=== PATIENT | female | born 1975 | race Caucasian/White ===

== ENCOUNTER 2017-09-04 15:02 | Emergency (ER) | payer MEDICAID ==
[2017-09-04 15:20] VITALS: BP 135/102
[2017-09-04] MEDS ORDERED: oxyCOD/ACETAMIN 5 MG/325 MG TABLET PO STA (15:36)
[2017-09-04] MEDS ORDERED: CLINDAMYCIN 150 MG CAPSULE PO STA (15:36)
--- NOTE | 2017-09-04 15:41 | ED Physician Documentation ---
PD HPI SKIN - Stated complaint Stated Complaint: BILAT UNDER ARM PX - Chief complaint Chief Complaint: Wound - History obtained from History obtained from: Patient - History of Present Illness Timing - onset: Other (She had a cyst in the right axilla about a month ago that went away on its own. Now has one for the last few days and actually multiple on either side without fevers.) Review of Systems Constitutional: denies: Fever, Chills Cardiac: reports: Reviewed and negative Respiratory: reports: Reviewed and negative PD PAST MEDICAL HISTORY - Past Medical History Past Medical History: No - Past Surgical History Past Surgical History: No - Present Medications Home Medications: Ambulatory Orders Medication Instructions Recorded Confirmed Clindamycin [Cleocin] 300 mg PO Q6H 10 Days capsule 09/04/17 Oxycodone HCl/Acetaminophen 1 - 2 tab PO Q4H PRN #10 tablet 09/04/17 [Percocet 5-325 mg Tablet] - Allergies Allergies/Adverse Reactions: Allergies Allergy/AdvReac Type Severity Reaction Status Date / Time No Known Drug Allergies Allergy Verified 09/04/17 15:20 - Social History Does the pt smoke?: Yes Smoking Status: Current every day smoker Does the pt drink ETOH?: No Does the pt have substance abuse?: No - Immunizations Immunizations are current?: Yes PD ED PE NORMAL - Vitals Vital signs reviewed: Yes - General General: Alert and oriented X 3, No acute distress - Derm Derm: Other (Multiple small tender cysts in both axilla without cellulitis. Good ROM.) - Neuro Neuro: Alert and oriented X 3, Normal speech Results - Vitals Vitals: Vital Signs - 24 hr 09/04/17 15:18 Temperature 36.4 C L Heart Rate 102 H Respiratory 18 Rate Blood Pressure 135/102 H O2 Saturation 98 Oxygen O2 Source Room air Departure - Departure Disposition: Home, Self Care Clinical Impression: Hidradenitis suppurativa Condition: Good Record reviewed to determine appropriate education?: Yes Instructions: ED Stap Infec Abx Tx Only Follow-Up: [facility] [Provider Group] Prescriptions: Clindamycin [Cleocin] 300 mg PO Q6H 10 Days capsule Oxycodone HCl/Acetaminophen [Percocet 5-325 mg Tablet] 1 - 2 tab PO Q4H PRN #10 tablet PRN Reason: Pain Comments: Call your doctor to arrange a follow-up appointment, make the next available appointment. In the interim, return anytime if worse or if new symptoms develop.
== END 2017-09-04 15:56 | disposition home or self-care (01) ==
LOC: ED 15:02
DX: L73.2 Hidradenitis suppurativa (principal); F17.200 Nicotine dependence, unspecified, uncomplicated
CPT/HCPCS: 99283; A9270

== ENCOUNTER 2017-12-03 09:30 | Emergency (ER) | payer MEDICAID ==
[2017-12-03 09:39] VITALS: BP 138/83
--- NOTE | 2017-12-03 10:46 | XRAY Report ---
Reason: left ankle injury Procedure Date: 12/03/2017 Accession Number: [id number] / [id number] Procedure: XR - Ankle 3 View LT CPT Code: FULL RESULT: EXAM: LEFT ANKLE RADIOGRAPHY EXAM DATE: 12/03/2017 09:54 AM. CLINICAL HISTORY: Pain and swelling to the left ankle following inversion injury. COMPARISON: None. TECHNIQUE: 3 views. FINDINGS: Bones: Normal. No fractures or bone lesions. Joints: Normal. No effusion. No subluxations. The ankle mortise is normally aligned. Soft Tissues: Mildly increased soft tissue swelling predominantly at the lateral ankle. IMPRESSION: Soft tissue swelling without fracture or dislocation. RADIA
== END 2017-12-03 10:23 | disposition left against medical advice (07) ==
LOC: ED 09:30
DX: Z53.21 Procedure and treatment not carried out due to patient leaving prior to being seen by health care provider (principal)

== ENCOUNTER 2022-03-13 21:01 | Emergency (ER) | payer MEDICAID ==
--- NOTE | 2022-03-13 21:30 | ED Physician Documentation ---
History of Present Illness - Stated complaint Stated Complaint: SOA,HIGH BP,VISION BLURRED - Chief complaint Chief Complaint: General - History obtained from History obtained from: Patient - Additonal information Additional information: The patient comes to the emergency department chief complaint of blurry vision for the last couple of months, bloody noses, high blood pressure, and just feeling generally weak. The patient does not currently see a primary care physician. She has no formal diagnosis of hypertension and has never been diagnosed with diabetes. She does not normally need any corrective lenses. The patient denies any bleeding disorders. She has had some vaginal bleeding, but states its been mostly normal. The patient states that she has noticed some intermittent swelling in her lower extremities, but it is better right now. No fevers or chills. No cough. No nausea or vomiting. No other complaints at this time. Review of Systems Ten Systems: 10 systems reviewed and negative Constitutional: reports: Fatigue Eyes: reports: Reviewed and negative Ears: reports: Reviewed and negative Nose: reports: Reviewed and negative Throat: reports: Reviewed and negative Cardiac: reports: Reviewed and negative Respiratory: reports: Reviewed and negative GI: reports: Reviewed and negative : reports: Reviewed and negative Skin: reports: Reviewed and negative Musculoskeletal: reports: Reviewed and negative Neurologic: reports: Reviewed and negative Psychiatric: reports: Reviewed and negative Endocrine: reports: Reviewed and negative Immunocompromised: reports: Reviewed and negative PD PAST MEDICAL HISTORY - Past Medical History Past Medical History: Yes Cardiovascular: Hypertension Respiratory: None Neuro: None Endocrine/Autoimmune: None GI: None 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 : None HEENT: None Psych: None Musculoskeletal: None Derm: None - Past Surgical History Past Surgical History: No - Present Medications Home Medications: Ambulatory Orders Medication Instructions Recorded Confirmed Ferrous Sulfate [Feosol] 325 mg PO DAILY #90 tablet 03/13/22 - Allergies Allergies/Adverse Reactions: Allergies Allergy/AdvReac Type Severity Reaction Status Date / Time No Known Drug Allergies Allergy Verified 03/13/22 21:16 - Social History Does the pt smoke?: Yes Smoking Status: Current every day smoker Does the pt drink ETOH?: No Does the pt have substance abuse?: No - Immunizations Immunizations are current?: Yes - POLST Patient has POLST: No PD ED PE NORMAL - Vitals Vital signs reviewed: Yes - General General: Alert and oriented X 3, No acute distress, Well developed/nourished, Other (Somewhat disheveled) - HEENT HEENT: Atraumatic, PERRL, EOMI, Moist mucous membranes - Neck Neck: Supple, no meningeal sign - Cardiac Cardiac: RRR, No murmur - Respiratory Respiratory: No respiratory distress, Clear bilaterally - Abdomen Abdomen: Soft, Non tender, Non distended - Derm Derm: Warm and dry, Other (Moderate pallor) - Extremities Extremities: No deformity, No edema - Neuro Neuro: Alert and oriented X 3, master esthetician 2-12 intact, Normal speech, Other (Grossly intact) - Psych Psych: Normal mood, Normal affect Results - Vitals Vitals: Oxygen O2 Source Room air - Labs Labs: Laboratory Tests 03/13/22 03/13/22 03/13/22 21:38 21:38 21:38 WBC 6.9 RBC 3.49 L Hgb 6.9 L* Hct 25.7 L MCV 73.6 L MCH 19.8 L MCHC 26.8 L RDW 22.3 H Plt Count 342 MPV 10.2 Neut # (Auto) 4.1 Lymph # (Auto) 1.8 [place] # (Auto) 0.6 Eos # (Auto) 0.3 Baso # (Auto) 0.1 Absolute Nucleated RBC 0.00 Nucleated RBC % 0.0 PT INR Sodium 136 Potassium 3.8 Chloride 99 L Carbon Dioxide 26 Anion Gap 11.0 BUN 15 Creatinine 1.5 H Estimated GFR (MDRD) 37 L Glucose 87 Calcium 8.5 Total Bilirubin 0.6 AST 152 H ALT 102 H Alkaline Phosphatase 115 Total Protein 9.1 H Albumin 3.7 Globulin 5.4 H Albumin/Globulin Ratio 0.7 L Lipase 40 Blood Type Blood Type Recheck A POSITIVE Antibody Screen Crossmatch IS Only 03/13/22 03/13/22 21:55 21:55 WBC RBC Hgb Hct MCV MCH MCHC RDW Plt Count MPV Neut # (Auto) Lymph # (Auto) [place] # (Auto) Eos # (Auto) Baso # (Auto) Absolute Nucleated RBC Nucleated RBC % PT 11.7 INR 1.0 Sodium Potassium Chloride Carbon Dioxide Anion Gap BUN Creatinine Estimated GFR (MDRD) Glucose Calcium Total Bilirubin AST ALT Alkaline Phosphatase Total Protein Albumin Globulin Albumin/Globulin Ratio Lipase Blood Type A POSITIVE Blood Type Recheck Antibody Screen NEGATIVE Crossmatch IS Only See Detail PD MEDICAL DECISION MAKING - ED course Complexity details: reviewed results, re-evaluated patient, considered differential, d/w patient ED course: The patient was worked up with laboratory studies, which did show a hemoglobin of 6.9. I discussed this with the patient, and informed her that she is low enough to be within transfusion range and that I would recommend this, given that she has had fatigue recently. The patient states that she does not want to receive the transfusion unless her is here. The patient requested that we contact the for her and then wait 20 minutes to see if he shows up. I told her that we need to move forward with treatment if she is going to have it and that she is welcome to call her herself. The patient did call apparently this person and the number that she dialed was disconnected. I reviewed her records and the patient is not listed as having any spouse and her demographics. The patient stated that she would prefer to just go instead of getting the transfusion. I have prepared AMA paperwork for her, as I do feel that it would be in her best interest to get the transfusion and then started on iron pill. I have advised her to follow-up with soon as possible with her primary doctor and gynecology. We have discussed that she can come back anytime, should she change her mind about the transfusion. I have prescribed iron sulfate for her. Departure - Departure Disposition: 07 Against Medical Advice Clinical Impression: Anemia Qualifiers: Anemia type: iron deficiency Iron deficiency anemia type: chronic blood loss Qualified Code(s): D50.0 - Iron deficiency anemia secondary to blood loss (chronic) Condition: Stable Instructions: ED Anemia Iron Deficiency Follow-Up: Bakari Villa MD [Provider Admit Priv/Credential] - Alvina Tinsley PA-C [Provider Admit Priv/Credential] - Prescriptions: Ferrous Sulfate [Feosol] 325 mg PO DAILY #90 tablet Comments: You have been evaluated in the emergency department for feeling tired and sometimes short of breath, and had been found to have a red blood cell level that is very low. You are just barely in transfusion range, and we have offered you this today. However, you have declined unless your significant other is here, but have been unable to reach him. As such, since you have declined to have a transfusion under any other circumstances, you are choosing to leave AGAINST MEDICAL ADVICE. At this point in time, the only other thing we can do for you is to place you on iron tablets. It is very important that you follow- up both in primary care and women's health if you are having ongoing vaginal bleeding. It is possible that you need hormone therapy or a hysterectomy. Please call to make the next possible appointment. Discharge Date/Time: 03/13/22 23:35
[2022-03-13 21:42] LABS: BASOPHILS # (AUTO) 0.1 10^3/uL (0.0-0.1); EOSINOPHILS # (AUTO) 0.3 10^3/uL (0.0-0.7); EOSINOPHILS % (AUTO) 4.5 %; HCT - HEMATOCRIT 25.7 % (37.0-47.0); LYMPHOCYTES # (AUTO) 1.8 10^3/uL (1.5-3.5); LYMPHOCYTES % (AUTO) 25.8 %; MEAN CORPUSCULAR HEMOGLOBIN 19.8 pg (27.0-31.0); MEAN CORPUSCULAR HGB CONC 26.8 g/dL (32.0-36.0); MEAN CORPUSCULAR VOLUME 73.6 fL (81.0-99.0); MEAN PLATELET VOLUME 10.2 fL (7.9-10.8); MONOCYTES # (AUTO) 0.6 10^3/uL (0.0-1.0); MONOCYTES % (AUTO) 8.7 %; NEUTROPHILS # (AUTO) 4.1 10^3/uL (1.5-6.6); NEUTROPHILS % (AUTO) 59.7 %; PLT - PLATELET COUNT 342 10^3/uL (130-450); RED BLOOD COUNT 3.49 10^6/uL (4.20-5.40); RED CELL DISTRIBUTION WIDTH 22.3 % (12.0-15.0); WHITE BLOOD COUNT 6.9 x10^3/uL (4.8-10.8)
[2022-03-13 21:46] LABS: HGB - HEMOGLOBIN 6.9 g/dL (12.0-16.0)
[2022-03-13] MEDS ORDERED: SODIUM CHLORIDE 0.9% 1,000 ML IV STA (21:50)
[2022-03-13 21:56] LABS: ALBUMIN 3.7 g/dL (3.2-5.5); ALBUMIN/GLOBULIN RATIO 0.7 (1.0-2.2); BILIRUBIN,TOTAL 0.6 mg/dL (0.2-1.0); CALCIUM 8.5 mg/dL (8.5-10.3); CREATININE 1.5 mg/dL (0.4-1.0); POTASSIUM 3.8 mmol/L (3.5-5.0); TOTAL PROTEIN 9.1 g/dL (6.7-8.2)
[2022-03-13 22:08] LABS: PT - PROTHROMBIN TIME 11.7 secs (9.9-12.6)
[2022-03-13 23:24] VITALS: BP 150/91
== END 2022-03-13 23:35 | disposition left against medical advice (07) ==
LOC: ED 21:01
DX: D50.0 Iron deficiency anemia secondary to blood loss (chronic) (principal); F17.200 Nicotine dependence, unspecified, uncomplicated; Z53.29 Procedure and treatment not carried out because of patient's decision for other reasons
CPT/HCPCS: 36415; 80053; 83690; 85025; 85610; 86850; 86900; 86901; 86920; 99283; 99284

== ENCOUNTER 2022-09-28 17:16 | Emergency (ER) | payer OTHER, MEDICAID ==
[2022-09-28 17:27] VITALS: BP 118/70
--- NOTE | 2022-09-28 17:35 | ED Physician Documentation ---
History of Present Illness - Stated complaint Stated Complaint: FIT - Chief complaint Chief Complaint: Ext Problem - Additonal information Additional information: 46-year-old female was brought to the emergency department by [facility] eriff officers requesting evaluation for fit for confinement. Patient had complained to the [employer] officers that she needed a blood transfusion. The patient is homeless and was arrested today and warrants. She is pending incarceration for the next several weeks. Patient states she is chronically fatigued. Denies alcohol use but is a tobacco user. States she has a history of hypertension but is unmedicated at this time. No recent syncope. She denies melena but states that she does have prolonged menstrual cycles when they occur. 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 : None HEENT: None Psych: None Musculoskeletal: None Derm: None - Past Surgical History Past Surgical History: No - Present Medications Home Medications: Ambulatory Orders Medication Instructions Recorded Confirmed Ferrous Sulfate [Feosol] 325 mg PO DAILY #90 tablet 03/13/22 - Allergies Allergies/Adverse Reactions: Allergies Allergy/AdvReac Type Severity Reaction Status Date / Time No Known Drug Allergies Allergy Verified 09/28/22 17:19 - Social History Does the pt smoke?: Yes Smoking Status: Current every day smoker Does the pt drink ETOH?: No Does the pt have substance abuse?: No - Immunizations Immunizations are current?: Yes - POLST Patient has POLST: No PD ED PE NORMAL - General General: Alert and oriented X 3, No acute distress. No: Well developed/nourished (Grossly disheveled with poor hygiene and bad smell) - Cardiac Cardiac: RRR, No murmur. No: Strong equal pulses (1+ pedal pulses bilaterally. Brisk cap refill. Evidence of peripheral vascular disease bilateral lower extremities) - Respiratory Respiratory: No respiratory distress, Clear bilaterally - Abdomen Abdomen: Normal bowel sounds, Soft, Non tender, Non distended - Neuro Neuro: Alert and oriented X 3, power distributor 2-12 intact Eye Opening: Spontaneous Motor: Obeys Commands Verbal: Oriented GCS Score: 15 Results - Vitals Vitals: Vital Signs - 24 hr 09/28/22 17:19 Temperature 36.5 C Heart Rate 74 Respiratory 18 Rate Blood Pressure 118/70 O2 Saturation 93 Oxygen O2 Source Room air - Labs Labs: Laboratory Tests 09/28/22 09/28/22 17:35 17:35 WBC 5.2 RBC 4.78 Hgb 11.3 L Hct 38.0 MCV 79.5 L MCH 23.6 L MCHC 29.7 L RDW 24.5 H Plt Count 356 MPV 10.7 Neut # (Auto) 3.0 Lymph # (Auto) 1.7 [place] # (Auto) 0.3 Eos # (Auto) 0.2 Baso # (Auto) 0.1 Absolute Nucleated RBC 0.00 Nucleated RBC % 0.0 Platelet Estimate NORMAL (130-450,000) Platelet Morphology NORMAL APPEARANCE RBC Morph Micro Appear 3+ ANISOCYTOSIS Sodium 133 L Potassium 3.6 Chloride 99 L Carbon Dioxide 27 Anion Gap 7.0 BUN 18 Creatinine 1.6 H Estimated GFR (MDRD) 34 L Glucose 121 H Calcium 8.9 Total Bilirubin 0.7 AST 113 H ALT 62 H Alkaline Phosphatase 101 Total Protein 9.7 H Albumin 3.8 Globulin 5.9 H Albumin/Globulin Ratio 0.6 L Lipase 42 PD Medical Decision Making - ED course Complexity details: reviewed results, re-evaluated patient, considered differential, d/w patient ED course: 38-year-old female who is homeless was brought to the emergency department by [facility] officers requesting evaluation for fit for confinement. The patient had reportedly told the officers she was fatigued and needed a blood transfusion. She was seen in this emergency department March 2022 for fatigue and found to have a hemoglobin of 6.9. However she ultimately left AGAINST MEDICAL ADVICE not receiving the blood transfusion. She reports heavy menstrual cycles. No melena. Presentation to the emergency department she appears quite disheveled and with poor hygiene and odor. Her vital signs are however normal without hypotension or tachycardia. I did obtain CBC and electrolytes. Per my interpretation no anemia was noted. Her hemoglobin was 11.3. She did have some mild electrolyte derangements that are essentially unchanged from previous. I do note a creatinine of 1.6, slightly up from her previous of 1.3. She also has some LFT abnormalities essentially unchanged from previous. Patient takes no medications. At this time patient is clinically stable and is discharged back to to the custody of [facility]. She is fit for confinement. She is advised to follow closely with a primary doctor when released from confinement. Departure - Departure Disposition: 01 Home, Self Care Clinical Impression: Encounter for medical assessment, Abnormal LFTs Chronic kidney disease Qualifiers: Chronic kidney disease stage: unspecified stage Qualified Code(s): N18.9 - Chronic kidney disease, unspecified Comments: You are medically cleared for incarceration. Your labs today show a normal hemoglobin. You do not need a blood transfusion. Your electrolytes do show a chronic and essentially unchanged kidney disease. You also have abnormal liver function tests. I encourage you to follow these labs up with a primary doctor when you are released from incarceration. You do not need any medications while incarcerated.
[2022-09-28 17:43] LABS: BASOPHILS # (AUTO) 0.1 10^3/uL (0.0-0.1); BASOPHILS % (AUTO) 1.7 %; EOSINOPHILS # (AUTO) 0.2 10^3/uL (0.0-0.7); EOSINOPHILS % (AUTO) 3.1 %; HGB - HEMOGLOBIN 11.3 g/dL (12.0-16.0); LYMPHOCYTES # (AUTO) 1.7 10^3/uL (1.5-3.5); LYMPHOCYTES % (AUTO) 32.1 %; MEAN CORPUSCULAR HEMOGLOBIN 23.6 pg (27.0-31.0); MEAN CORPUSCULAR HGB CONC 29.7 g/dL (32.0-36.0); MEAN CORPUSCULAR VOLUME 79.5 fL (81.0-99.0); MEAN PLATELET VOLUME 10.7 fL (7.9-10.8); MONOCYTES # (AUTO) 0.3 10^3/uL (0.0-1.0); MONOCYTES % (AUTO) 5.5 %; NEUTROPHILS % (AUTO) 57.6 %; PLT - PLATELET COUNT 356 10^3/uL (130-450); RED BLOOD COUNT 4.78 10^6/uL (4.20-5.40); RED CELL DISTRIBUTION WIDTH 24.5 % (12.0-15.0); WHITE BLOOD COUNT 5.2 x10^3/uL (4.8-10.8)
[2022-09-28 17:56] LABS: ALBUMIN 3.8 g/dL (3.2-5.5); ALBUMIN/GLOBULIN RATIO 0.6 (1.0-2.2); BILIRUBIN,TOTAL 0.7 mg/dL (0.2-1.0); CALCIUM 8.9 mg/dL (8.5-10.3); CREATININE 1.6 mg/dL (0.4-1.0); POTASSIUM 3.6 mmol/L (3.5-5.0); TOTAL PROTEIN 9.7 g/dL (6.7-8.2)
[2022-09-28 17:59] LABS: PLATELET ESTIMATE, MANUAL NORMAL (130-450,000) (NORMAL); PLATELET MORPHOLOGY NORMAL APPEARANCE (NORMAL); RBC MORPHOLOGY (MULTIPLE) 3+ ANISOCYTOSIS (NORMAL)
== END 2022-09-28 18:12 | disposition home or self-care (01) ==
LOC: ED 17:16
DX: Z02.89 Encounter for other administrative examinations (principal); R74.01 Elevation of levels of liver transaminase levels; N18.9 Chronic kidney disease, unspecified; F17.200 Nicotine dependence, unspecified, uncomplicated; Z59.00 Homelessness unspecified
CPT/HCPCS: 36415; 80053; 83690; 85025; 86850; 86900; 86901; 99283

== ENCOUNTER 2023-08-18 06:25 | Emergency (ER) | payer MEDICAID, OTHER ==
[2023-08-18 06:45] VITALS: BP 180/109; O2SAT 94
--- NOTE | 2023-08-18 06:53 | ED Physician Documentation ---
PD HPI OPHTHO - Stated complaint Stated Complaint: FIT - Chief complaint Chief Complaint: Heent - History obtained from History obtained from: Patient, Police - Additional information Additional information: 47yF p/w BL eye discharge X 1 week with itchiness and purulence. denies fever, uri symptoms. denies contact lens use. 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 : None HEENT: None Psych: None Musculoskeletal: None Derm: None - Past Surgical History Past Surgical History: No - Present Medications Home Medications: Ambulatory Orders Medication Instructions Recorded Confirmed Ferrous Sulfate [Feosol] 325 mg PO DAILY #90 tablet 03/13/22 08/18/23 - Allergies Allergies/Adverse Reactions: Allergies Allergy/AdvReac Type Severity Reaction Status Date / Time No Known Drug Allergies Allergy Verified 08/18/23 06:36 - Social History Does the pt smoke?: Yes Smoking Status: Current every day smoker Does the pt drink ETOH?: No Does the pt have substance abuse?: No - Immunizations Immunizations are current?: Yes - POLST Patient has POLST: No PD ED PE NORMAL - Vitals Vital signs reviewed: Yes - General General: Alert and oriented X 3, No acute distress, Well developed/nourished - HEENT HEENT: Atraumatic, PERRL, EOMI, Other (BL sukumar purulent discharge from both eyes. erythema to BL conjunctivae) Results - Vitals Vitals: Vital Signs - 24 hr 08/18/23 06:33 Temperature 36 C L Heart Rate 82 Respiratory 18 Rate Blood Pressure 180/109 H O2 Saturation 94 Oxygen O2 Source Room air PD Medical Decision Making - ED course ED course: 47yF p/w BL conjunctivitis. Eye drops provided and plan to f/u outpatient walk in clinic or optometry for recheck in 3-4 days. return precautions given. Departure - Departure Disposition: 01 Home, Self Care Clinical Impression: Conjunctivitis Condition: Stable Instructions: Red Eye Tx Comments: You were seen in the emergency department for conjunctivitis (pink eye). This is HIGHLY CONTAGIOUS. Wash hands with hot soapy water and avoid touching the face. Use the antibiotic eye drops (1-2 drops in each eye) every 4 hours until the bottle is empty. Please follow-up with outpatient walk in clinic or optometry for recheck in 3-4 days and return to the emergency department if you have any new or worsening symptoms or other concerns.
[2023-08-18] MEDS: OFLOXACIN 0.3% OPHTH DROPS EACHEYE SCH (06:56)
== END 2023-08-18 07:09 | disposition home or self-care (01) ==
LOC: ED 06:25
DX: Z02.89 Encounter for other administrative examinations (principal); H10.9 Unspecified conjunctivitis; F17.200 Nicotine dependence, unspecified, uncomplicated
CPT/HCPCS: 99283; A9270

== ENCOUNTER 2023-09-02 19:32 | Outpatient (CLI) | payer MEDICAID | END 2023-09-02 19:33 | disposition critical access hospital (66) | LOC: EMS 19:32 | DX: R41.82 Altered mental status, unspecified (principal); R46.4 Slowness and poor responsiveness; R46.89 Other symptoms and signs involving appearance and behavior; R46.0 Very low level of personal hygiene; T68.XXXA Hypothermia, initial encounter; X31.XXXA Exposure to excessive natural cold, initial encounter; Z59.00 Homelessness unspecified | CPT/HCPCS: A0425; A0427; A0999 ==

== ENCOUNTER 2023-09-02 19:44 | Emergency (ER) | payer MEDICAID, OTHER ==
[2023-09-02] MEDS ORDERED: ATROPINE ABBOJECT 1 MG/10 ML SYRINGE IVP ONE (19:45)
[2023-09-02] MEDS ORDERED: EPINEPHrine ABBOJECT 1 MG/10 ML SYRINGE IVP ONE (19:45)
[2023-09-02] MEDS ORDERED: iohexoL-300 100 ML VIAL ONE (20:07)
[2023-09-02] MEDS ORDERED: NOREPINEPHRINE/0.9 % NS 8 MG/250 ML BAG IV ONE (20:22)
[2023-09-02] MEDS: SODIUM CHLORIDE 0.9% 1,000 ML IV STA ×2 (20:25→21:10)
[2023-09-02] MEDS: PROPOFOL 1000 MG/100 ML 1,000 MG/100 ML BOTTLE IV STA (20:28)
[2023-09-02 20:31] LABS: BASOPHILS % (AUTO) 0.4 %; EOSINOPHILS % (AUTO) 0.4 %; HCT - HEMATOCRIT 30.5 % (37.0-47.0); HGB - HEMOGLOBIN 9.5 g/dL (12.0-16.0); LYMPHOCYTES # (AUTO) 0.3 10^3/uL (1.5-3.5); LYMPHOCYTES % (AUTO) 13.8 %; MEAN CORPUSCULAR HEMOGLOBIN 29.7 pg (27.0-31.0); MEAN CORPUSCULAR HGB CONC 31.1 g/dL (32.0-36.0); MEAN CORPUSCULAR VOLUME 95.3 fL (81.0-99.0); MEAN PLATELET VOLUME 11.9 fL (7.9-10.8); MONOCYTES # (AUTO) 0.1 10^3/uL (0.0-1.0); NRBC ABSOLUTE COUNT (AUTO) 0.05 x10^3/uL; PLT - PLATELET COUNT 65 10^3/uL (130-450); RED CELL DISTRIBUTION WIDTH 21.1 % (12.0-15.0); WHITE BLOOD COUNT 2.5 x10^3/uL (4.8-10.8)
[2023-09-02] MEDS: KETAMINE 500 MG/10 ML VIAL IVP STA (20:31)
[2023-09-02] MEDS: NOREPINEPHRINE/0.9 % NS 8 MG/250 ML BAG IV SCH (20:31)
[2023-09-02 20:32] LABS: VBG BASE EXCESS -3.1 mmol/L (-2 - +2); VBG HCO3 23.1 mmol/L (23-28); VBG OXYGEN SATURATION 92.5 % (60-80); VBG PCO2 46.6 mmHg (41-51); VBG PH 7.313 (7.31-7.41); VBG TOTAL CO2 24.5 mmol/L (24-29)
[2023-09-02] MEDS: EPINEPHrine 1 MG/ML AMP IVP STA (20:32)
[2023-09-02] MEDS: ROCURONIUM 50 MG/5 ML VIAL IVP STA (20:32)
[2023-09-02 20:33] LABS: SLIDE REVIEW? Indicated
[2023-09-02] MEDS: SODIUM CHLORIDE 0.9% 2,730 ML IV STA (20:38)
[2023-09-02] MEDS: EPINEPHrine 4 MG in DEXTROSE 5% 246 ML IV STA (20:40)
[2023-09-02] MEDS: metroNIDAZOLE 500 MG/100 ML 500 MG/100 ML BAG IV ONE (20:41)
[2023-09-02] MEDS: CEFEPIME 2 GM in SODIUM CHLORIDE 0.9% MINIBAG 100 ML IV STA (20:41)
[2023-09-02 20:48] LABS: ACETAMINOPHEN 0.3 ug/mL; ALBUMIN 3.2 g/dL (3.2-5.5); ALBUMIN/GLOBULIN RATIO 0.8 (1.0-2.2); ALKALINE PHOSPHATASE 122 IU/L (42-121); ALT ALANINE AMINOTRANSFERASE 104 IU/L (10-60); AST ASPARTATE AMINOTRANSFERASE 225 IU/L (10-42); BILIRUBIN,TOTAL 0.5 mg/dL (0.2-1.0); BUN - BLOOD UREA NITROGEN 26 mg/dL (6-20); CALCIUM 8.8 mg/dL (8.5-10.3); CARBON DIOXIDE - CO2 25 mmol/L (21-32); CHLORIDE 104 mmol/L (101-111); CREATININE 1.2 mg/dL (0.6-1.3); ETOH - ETHANOL < 10.0 mg/dL; GFR - MDRD 48 (>89); GLUCOSE 144 mg/dL (74-104); MAGNESIUM 2.1 mg/dL (1.7-2.3); PHOSPHORUS 3.9 mg/dL (2.5-5.0); POTASSIUM 3.1 mmol/L (3.5-4.5); SODIUM 138 mmol/L (135-145); TOTAL PROTEIN 7.4 g/dL (6.4-8.9)
[2023-09-02 20:50] LABS: SALICYLATE < 1.5 mg/dL
[2023-09-02 20:55] LABS: INR 1.6 (0.8-1.2); PT - PROTHROMBIN TIME 16.8 secs (9.9-12.6)
[2023-09-02 20:56] LABS: PLATELET ESTIMATE, MANUAL DECREASED (<130,000) (NORMAL); PLATELET MORPHOLOGY NORMAL APPEARANCE (NORMAL); WBC MORPHOLOGY (MULTIPLE) NORMAL APPEARANCE (NORMAL)
--- NOTE | 2023-09-02 20:59 | XRAY Report ---
PROCEDURE: Chest for Line Placement INDICATIONS: resp failure TECHNIQUE: One view of the chest was acquired. COMPARISON: None. FINDINGS: Surgical changes and devices: ET tube tip is approximately 4.4 cm above the natalio. Right internal j ugular central venous catheter tip is in SVC. NG tube tip is below the left hemidiaphragm.. Lungs and pleura: No pleural effusions or pneumothorax. There is no focal infiltrate. Mild pulmonary vascular congestion is seen. Mediastinum: Mediastinal contours appear normal. Heart size is normal. Bones and chest wall: No suspicious bony lesions. Overlying soft tissues appear unremarkable. IMPRESSION: Tube and line positions as above. Mild congestion. No focal infiltrate, pleural effusion. Reviewed by: Ronnie Teran MD on 09/02/2023 8:58 PM PDT Approved by: Ronnie Teran MD on 09/02/2023 8:58 PM PDT Station ID: [id number]
--- NOTE | 2023-09-02 21:10 | ED Physician Documentation ---
PD HPI ALTERED MENTAL STATUS - Stated complaint Stated Complaint: AMS/SI - Chief complaint Chief Complaint: Neuro - History obtained from History obtained from: EMS - Additional information Additional information: 47-year-old woman reportedly homeless presents by ambulance for altered mental status. I guess she has not been seen in weeks and is living outdoors. She just showed up at a friend's house. On arrival she is obtunded. 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 : None HEENT: None Psych: None Musculoskeletal: None Derm: None - Past Surgical History Past Surgical History: No - Present Medications Home Medications: Ambulatory Orders Medication Instructions Recorded Confirmed Ferrous Sulfate [Feosol] 325 mg PO DAILY #90 tablet 03/13/22 08/18/23 - Allergies Allergies/Adverse Reactions: Allergies Allergy/AdvReac Type Severity Reaction Status Date / Time No Known Drug Allergies Allergy Verified 09/02/23 19:59 - Social History Does the pt smoke?: Yes Smoking Status: Current every day smoker Does the pt drink ETOH?: No Does the pt have substance abuse?: No - Immunizations Immunizations are current?: Yes - POLST Patient has POLST: No PD ED PE NORMAL - General General: Other (Ill kempt, covered in stool with mottled lower extremities. Barely responsive.) - HEENT HEENT: PERRL - Neck Neck: Supple, no meningeal sign - Cardiac Cardiac: RRR, No murmur - Respiratory Respiratory: No respiratory distress, Clear bilaterally - Abdomen Abdomen: Non tender - Extremities Extremities: Other (Very cold extremities with severely diminished perfusion.) - Neuro Eye Opening: To Pain Motor: Withdraws to Pain Verbal: None GCS Score: 7 Results - Vitals Vitals: Vital Signs - 24 hr 09/02/23 09/02/23 09/02/23 19:59 20:01 20:16 Heart Rate 25 L 31 L Respiratory 16 Rate Blood Pressure 125/79 68/50 L O2 Saturation 100 09/02/23 09/02/23 09/02/23 20:20 20:25 20:31 Heart Rate 61 54 L 34 L Respiratory 16 16 Rate Blood Pressure 145/99 H 112/45 L O2 Saturation 100 100 09/02/23 09/02/23 09/02/23 20:35 20:45 20:46 Heart Rate 55 L 46 L 53 L Respiratory 16 15 Rate Blood Pressure 151/107 H 147/102 H O2 Saturation 100 100 09/02/23 09/02/23 09/02/23 20:53 21:01 21:15 Heart Rate 49 L 47 L 46 L Respiratory 17 14 16 Rate Blood Pressure 126/81 H 99/71 O2 Saturation 100 100 100 09/02/23 09/02/23 09/02/23 21:20 21:30 21:35 Heart Rate 46 L 44 L 46 L Respiratory 17 17 Rate Blood Pressure 98/80 90/69 O2 Saturation 100 100 09/02/23 09/02/23 09/02/23 21:45 21:50 22:00 Heart Rate 50 L 45 L 48 L Respiratory 17 17 Rate Blood Pressure 90/69 86/61 L O2 Saturation 100 09/02/23 09/02/23 09/02/23 22:15 22:20 22:30 Heart Rate 48 L 48 L 47 L Respiratory 16 16 13 Rate Blood Pressure 96/70 91/70 88/66 L O2 Saturation 97 95 90 L Oxygen O2 Source Mechanical ventilator - Labs Labs: Laboratory Tests 09/02/23 09/02/23 09/02/23 20:24 20:24 20:24 WBC 2.5 L RBC 3.20 L Hgb 9.5 L Hct 30.5 L MCV 95.3 MCH 29.7 MCHC 31.1 L RDW 21.1 H Plt Count 65 L MPV 11.9 H Neut # (Auto) 2.0 Lymph # (Auto) 0.3 L Garza # (Auto) 0.1 Eos # (Auto) 0.0 Baso # (Auto) 0.0 Absolute Nucleated RBC 0.05 Nucleated RBC % 2.0 Manual Slide Review Indicated WBC Morphology NORMAL APPEARANCE Platelet Estimate DECREASED (<130,000) Platelet Morphology NORMAL APPEARANCE RBC Morph Micro Appear 2+ POIKILOCYTOSIS PT 16.8 H INR 1.6 H Bld Gas Analysis Time Sample Site ABG pH ABG pCO2 ABG pO2 ABG HCO3 ABG Total CO2 ABG O2 Saturation ABG Base Excess Ralph Test VBG pH VBG pCO2 VBG pO2 VBG HCO3 VBG Total CO2 VBG O2 Saturation VBG Base Excess Respiration Rate O2 Delivery Device Vent Mode FiO2 Tidal Volume PEEP Sodium 138 Potassium 3.1 L Chloride 104 Carbon Dioxide 25 Anion Gap 9.0 BUN 26 H Creatinine 1.2 Estimated GFR (MDRD) 48 L Glucose 144 H Lactic Acid Calcium 8.8 Phosphorus 3.9 Magnesium 2.1 Total Bilirubin 0.5 AST 225 H ALT 104 H Alkaline Phosphatase 122 H Total Creatine Kinase 3361 H* Total Protein 7.4 Albumin 3.2 Globulin 4.2 Albumin/Globulin Ratio 0.8 L TSH Urine Color Urine Clarity Urine pH Ur Specific Tunas Urine Protein Urine Glucose (UA) Urine Ketones Urine Occult Blood Urine Nitrite Urine Bilirubin Urine Urobilinogen Ur Leukocyte Esterase Urine RBC Urine WBC Ur Squamous Epith Cells Urine Bacteria Urine Casts Ur Microscopic Review Urine Culture Comments Urine HCG, Qual Nasal Adenovirus (PCR) Nasal B. parapertussis DNA (PCR) Nasal Coronavir 229E PCR Nasal Coronavir HKU1 PCR Nasal Coronavir NL63 PCR Nasal Coronavir OC43 PCR Nasal Enterovir/Rhinovir PCR Nasal Influenza B PCR Nasal Influenza A PCR Nasal Parainfluen 1 PCR Nasal Parainfluen 2 PCR Nasal Parainfluen 3 PCR Nasal Parainfluen 4 PCR Nasal RSV (PCR) Nasal B.pertussis DNA PCR Nasal C.pneumoniae (PCR) Zeferino Human Metapneumo PCR Nasal M.pneumoniae (PCR) Nasal SARS-CoV-2 (PCR) Salicylates < 1.5 Urine Opiates Screen Ur Buprenorphine Scrn Ur Oxycodone Screen Urine Methadone Screen Acetaminophen 0.3 Ur Barbiturates Screen Ur Tricyclics Screen Ur Phencyclidine Scrn Ur Amphetamine Screen U Methamphetamines Scrn U Benzodiazepines Scrn Urine Cocaine Screen U Cannabinoids Screen Ur Drug Screen Comment Ethyl Alcohol < 10.0 09/02/23 09/02/23 09/02/23 20:24 20:24 20:24 WBC RBC Hgb Hct MCV MCH MCHC RDW Plt Count MPV Neut # (Auto) Lymph # (Auto) Garza # (Auto) Eos # (Auto) Baso # (Auto) Absolute Nucleated RBC Nucleated RBC % Manual Slide Review WBC Morphology Platelet Estimate Platelet Morphology RBC Morph Micro Appear PT INR Bld Gas Analysis Time Sample Site ABG pH ABG pCO2 ABG pO2 ABG HCO3 ABG Total CO2 ABG O2 Saturation ABG Base Excess Ralph Test VBG pH 7.313 VBG pCO2 46.6 VBG pO2 73.0 H VBG HCO3 23.1 VBG Total CO2 24.5 VBG O2 Saturation 92.5 H VBG Base Excess -3.1 L Respiration Rate O2 Delivery Device Vent Mode FiO2 Tidal Volume PEEP Sodium Potassium Chloride Carbon Dioxide Anion Gap BUN Creatinine Estimated GFR (MDRD) Glucose Lactic Acid 3.6 H* Calcium Phosphorus Magnesium Total Bilirubin AST ALT Alkaline Phosphatase Total Creatine Kinase Total Protein Albumin Globulin Albumin/Globulin Ratio TSH 104.95 H Urine Color Urine Clarity Urine pH Ur Specific Tun[place] Urine Protein Urine Glucose (UA) Urine Ketones Urine Occult Blood Urine Nitrite Urine Bilirubin Urine Urobilinogen Ur Leukocyte Esterase Urine RBC Urine WBC Ur Squamous Epith Cells Urine Bacteria Urine Casts Ur Microscopic Review Urine Culture Comments Urine HCG, Qual Nasal Adenovirus (PCR) Nasal B. parapertussis DNA (PCR) Nasal Coronavir 229E PCR Nasal Coronavir HKU1 PCR Nasal Coronavir NL63 PCR Nasal Coronavir OC43 PCR Nasal Enterovir/Rhinovir PCR Nasal Influenza B PCR Nasal Influenza A PCR Nasal Parainfluen 1 PCR Nasal Parainfluen 2 PCR Nasal Parainfluen 3 PCR Nasal Parainfluen 4 PCR Nasal RSV (PCR) Nasal B.pertussis DNA PCR Nasal C.pneumoniae (PCR) Zeferino Human Metapneumo PCR Nasal M.pneumoniae (PCR) Nasal SARS-CoV-2 (PCR) Salicylates Urine Opiates Screen Ur Buprenorphine Scrn Ur Oxycodone Screen Urine Methadone Screen Acetaminophen Ur Barbiturates Screen Ur Tricyclics Screen Ur Phencyclidine Scrn Ur Amphetamine Screen U Methamphetamines Scrn U Benzodiazepines Scrn Urine Cocaine Screen U Cannabinoids Screen Ur Drug Screen Comment Ethyl Alcohol 09/02/23 09/02/23 09/02/23 20:39 21:05 22:19 WBC RBC Hgb Hct MCV MCH MCHC RDW Plt Count MPV Neut # (Auto) Lymph # (Auto) Garza # (Auto) Eos # (Auto) Baso # (Auto) Absolute Nucleated RBC Nucleated RBC % Manual Slide Review WBC Morphology Platelet Estimate Platelet Morphology RBC Morph Micro Appear PT INR Bld Gas Analysis Time 2106 Sample Site A-LINE ABG pH 7.38 ABG pCO2 41 ABG pO2 103 H ABG HCO3 23.3 ABG Total CO2 24.5 ABG O2 Saturation 97 ABG Base Excess -1.8 Ralph Test NOT APPLICABLE VBG pH VBG pCO2 VBG pO2 VBG HCO3 VBG Total CO2 VBG O2 Saturation VBG Base Excess Respiration Rate 16 O2 Delivery Device VENTILATOR Vent Mode ASSIST/CONTROL FiO2 30.00 Tidal Volume 480 PEEP 5 Sodium Potassium Chloride Carbon Dioxide Anion Gap BUN Creatinine Estimated GFR (MDRD) Glucose Lactic Acid Calcium Phosphorus Magnesium Total Bilirubin AST ALT Alkaline Phosphatase Total Creatine Kinase Total Protein Albumin Globulin Albumin/Globulin Ratio TSH Urine Color YELLOW Urine Clarity HAZY Urine pH 6.0 Ur Specific Tunas 1.020 Urine Protein 100 H Urine Glucose (UA) NEGATIVE Urine Ketones NEGATIVE Urine Occult Blood LARGE H Urine Nitrite POSITIVE H Urine Bilirubin NEGATIVE Urine Urobilinogen 1 (NORMAL) Ur Leukocyte Esterase NEGATIVE Urine RBC 11-25 H Urine WBC 6-10 H Ur Squamous Epith Cells MANY Squamous H Urine Bacteria Many H Urine Casts 3-5 Fine Granular Ur Microscopic Review INDICATED Urine Culture Comments NOT INDICATED Urine HCG, Qual NEGATIVE Nasal Adenovirus (PCR) NOT DETECTED Nasal B. parapertussis DNA (PCR) NOT DETECTED Nasal Coronavir 229E PCR NOT DETECTED Nasal Coronavir HKU1 PCR NOT DETECTED Nasal Coronavir NL63 PCR NOT DETECTED Nasal Coronavir OC43 PCR NOT DETECTED Nasal Enterovir/Rhinovir PCR NOT DETECTED Nasal Influenza B PCR NOT DETECTED Nasal Influenza A PCR NOT DETECTED Nasal Parainfluen 1 PCR NOT DETECTED Nasal Parainfluen 2 PCR NOT DETECTED Nasal Parainfluen 3 PCR NOT DETECTED Nasal Parainfluen 4 PCR NOT DETECTED Nasal RSV (PCR) NOT DETECTED Nasal B.pertussis DNA PCR NOT DETECTED Nasal C.pneumoniae (PCR) NOT DETECTED Zeferino Human Metapneumo PCR NOT DETECTED Nasal M.pneumoniae (PCR) NOT DETECTED Nasal SARS-CoV-2 (PCR) NOT DETECTED Salicylates Urine Opiates Screen NEGATIVE Ur Buprenorphine Scrn NEGATIVE Ur Oxycodone Screen NEGATIVE Urine Methadone Screen NEGATIVE Acetaminophen Ur Barbiturates Screen NEGATIVE Ur Tricyclics Screen NEGATIVE Ur Phencyclidine Scrn NEGATIVE Ur Amphetamine Screen POSITIVE H U Methamphetamines Scrn POSITIVE H U Benzodiazepines Scrn NEGATIVE Urine Cocaine Screen NEGATIVE U Cannabinoids Screen NEGATIVE Ur Drug Screen Comment CUTOFF CONC BELOW: Ethyl Alcohol - Rads (name of study) Single view chest x-ray showing appropriate position of ETT, CVC, and NG tube. Perhaps mild vascular congestion. Relevant Findings:: Final report received, EMP independent interpretation of test CT Head- Mild Sinusitis/Soft Tissue scalp lesion Relevant Findings:: Final report received, EMP independent interpretation of test CT Cspine- NAD, Mild DDD, Small Ppleural eff. Relevant Findings:: Final report received, EMP independent interpretation of test CT Chest- mod pericardial eff. Small R pleural eff. BLL infilatrate R>L; lg thyroid Relevant Findings:: Final report received, EMP independent interpretation of test CT A/P- Cholelithiasis and bladder wall thickening Relevant Findings:: Final report received, EMP independent interpretation of test Procedures - General procedure General procedure: A right radial A-line was placed in standard fashion using real-time cold ultrasound guidance after complete prep. Consent could not be obtained. - Intubation - Major Provider: Emergency physician Medications: Ketamine (250mg IVP), Rocuronium (50mg IVP) Blade: Glidescope Tube: Size-enter number (7.5), Cuffed, Marked at lips-enter cm (23) Route: Oral Confirmation: Direct visualization, Bilateral breath sounds, No abdominal breath sound, End tidal CO2, Pulse ox, Chest xray Complications: No compications - Central Line - Major Central Line Preparation: Unable to obtain consent, Time out completed, Ultrasound used, Sterile prep and drape Central line location: Right IJ Central line type: Triple lumen Central line aftercare: Chlorhexidine disc placed, Secured, Placement confirmed, No pneumothorax, No complications, Bundle checklist complete, Pt tolerated well PD Medical Decision Making - ED course ED course: 47-year-old woman presents very cold. In fact we are unable to get a temperature. She is obtunded. She is bradycardic down into the 20s and in shock with peripherally very poor perfusion. She was attended to immediately and the decision to intubate with de la torre scan and septic workup was made. A pe ripheral IV was placed by the nurse and I gave her initially 0.5 mg of atropine as her heart rate was in the 20s which had little to no effect and then she did require a couple of doses of push dose epinephrine at 100 mcg per dose which did result in the required effect of reversing her severe bradycardia. She was intubated, fluid resuscitated, and central line and A-line were placed. She was cultured up and given broad-spectrum antibiotics of cefepime, Flagyl, and vancomycin. She was started on epinephrine drip for recurrent bradycardia and placed under warmer. At 1 point before the placement of the A-line I thought she lost pulses and we did do CPR for about a minute, but she regained pulses after that. A Fulton was placed, unfortunately we are out of the temperature-sensing Fulton's. She had no urine output. No ICU beds available here and regardless of that she is probably too ill to stay at this critical access hospital so the health community representative called around and she was excepted to [place] by Dr. Rodriguez. Cobras are completed and she will go by air ambulance. We are aggressively trying to warm her. - Critical Care Time(min): 105 Time Includes: Direct patient care, Review records, Reassess patient, Document care, Coordinate care, Medical consult, Family consult for tx dec Data interpretation: Labs, Pulse ox, ABG, CXR Procedures included in critical care time: Peripheral IV Procedures excluded from critical care time: Central IV, Arterial cannulation, Intubation, EKG Departure - Departure Disposition: 02 Transfer Acute Care Hosp Clinical Impression: Bradycardia, Hypothermia, Coma, Rhabdomyolysis Condition: Critical Forms: PCP List
[2023-09-02 21:11] LABS: CK- CREATINE KINASE 3361 IU/L (30-223)
[2023-09-02] MEDS: EPINEPHrine ABBOJECT 1 MG/10 ML SYRINGE IVP STA (21:13)
[2023-09-02 21:18] LABS: ABG BASE EXCESS -1.8 mmol/L (-2.0-3.0); ABG HCO3 23.3 mmol/L (22.0-26.0); ABG OXYGEN SATURATION 97 % (94-98); ABG PCO2 41 mmHg (34-45); ABG PH 7.38 (7.35-7.45); ABG PO2 103 mmHg (80-100); ABG TCO2 24.5 MMOL/L (21.0-29.0)
[2023-09-02 21:19] LABS: ABG MODE OF VENTILATION ASSIST/CONTROL; ABG RESPIRATORY RATE 16 b/min
[2023-09-02] MEDS ORDERED: VANCOMYCIN 1 GM VIAL ONE (21:35)
[2023-09-02 21:40] LABS: B. PARAPERTUSSIS- RESP PCR PAN NOT DETECTED; B. PERTUSSIS- RESP PCR PANEL NOT DETECTED; C. PNEUMONIAE- RESP PCR PANEL NOT DETECTED; CORONAVIRUS 229E-RESP PCR NOT DETECTED; CORONAVIRUS HKU1-RESP PCR NOT DETECTED; CORONAVIRUS NL63-RESP PCR NOT DETECTED; CORONAVIRUS OC43-RESP PCR NOT DETECTED; HUMAN METAPNEUMOVIRUS NOT DETECTED; INFLUENZA A- RESP PCR PANEL NOT DETECTED; INFLUENZA B - RESP PCR PANEL NOT DETECTED; M. PNEUMONIAE- RESP PCR PANEL NOT DETECTED; PARAINFLUENZA VIRUS 1 NOT DETECTED; PARAINFLUENZA VIRUS 2 NOT DETECTED; PARAINFLUENZA VIRUS 3 NOT DETECTED; PARAINFLUENZA VIRUS 4 NOT DETECTED; RHINOVIRUS/ENTEROVIRUS NOT DETECTED; RSV- RESP PCR PANEL NOT DETECTED; SARS-CoV-2 -RESP PCR PANEL NOT DETECTED
--- NOTE | 2023-09-02 22:05 | CT Report ---
PROCEDURE: Cervical Spine WO INDICATIONS: poss trauma TECHNIQUE: Noncontrast 3 mm thick sections acquired from the skull base to the T4 level. Sagittal and coronal r eformats were then constructed. For radiation dose reduction, the following was used: automated exp osure control, adjustment of mA and/or kV according to patient size. COMPARISON: None. FINDINGS: Image quality: Excellent. Bones: No fractures or dislocations. Degenerative endplate changes are seen at C5-6 level causing mi ld central canal stenosis. No significant neural foraminal narrowing. Visualized superior ribs are in tact. Soft tissues: Prevertebral soft tissues are normal in thickness. No paravertebral hematomas. No ap ical pneumothoraces. Patient is intubated with ET tube above the natalio. NG tube is also seen. Small right pleural effusion is noted. IMPRESSION: No acute, displaced fracture or traumatic subluxation. Mild degenerative disc disease at C5-6 level. Small right pleural effusion with adjacent dependent atelectasis in posterior aspect of right lung. Reviewed by: Ronnie Mendez MD on 09/02/2023 10:04 PM PDT Approved by: Ronnie Mendez MD on 09/02/2023 10:04 PM PDT Station ID: [id number]
--- NOTE | 2023-09-02 22:07 | CT Report ---
PROCEDURE: Head WO INDICATIONS: ams TECHNIQUE: Noncontrast 4.5 mm thick angled axial sections acquired from the foramen magnum to the vertex. For r adiation dose reduction, the following was used: automated exposure control, adjustment of mA and/or kV according to patient size. COMPARISON: None. FINDINGS: Image quality: Excellent. CSF spaces: Basal cisterns are patent. No extra-axial fluid collections. Ventricles are normal in size and shape. Brain: No midline shift. No intracranial masses or hemorrhage. Gunter-white matter interface is norm al. Skull and face: Calvarium and visualized facial bones are intact, without suspicious lesions. Nonsp ecific partially calcified nodule in posterior right occipital scalp is seen and measures 2 x 1.1 cm in size series 2 image 31 Sinuses: Mucosal thickening in right maxillary sinus and bilateral ethmoid sinuses is seen. Bilatera l mastoids are well aerated. IMPRESSION: No acute intracranial pathology. Mild sinusitis as above. Nonspecific partially calcified subcutaneous soft tissue nodule in posterior high occipital scalp. No acute skull fracture. Reviewed by: Ronnie Teran MD on 09/02/2023 10:06 PM PDT Approved by: Ronnie Teran MD on 09/02/2023 10:06 PM PDT Station ID: [id number]
[2023-09-02] MEDS: VANCOMYCIN INJ 1.5 GM in SODIUM CHLORIDE 0.9% 500 ML IV STA (22:23)
[2023-09-02 22:25] LABS: BILIRUBIN,URINE NEGATIVE (NEGATIVE); GLUCOSE, URINE (UA) NEGATIVE (NEGATIVE); KETONES,URINE (UA) NEGATIVE (NEGATIVE); LEUKOCYTE ESTERASE, URINE NEGATIVE (NEGATIVE); NITRITE,URINE POSITIVE (NEGATIVE); OCCULT BLOOD,URINE LARGE (NEGATIVE); PROTEIN,URINE 100 mg/dL (NEGATIVE); UROBILINOGEN,URINE 1 (NORMAL) E.U./dL (NORMAL)
--- NOTE | 2023-09-02 22:25 | CT Report ---
PROCEDURE: Chest W INDICATIONS: hypothermia, poss sepsis CONTRAST: 100 ML OMNI 300 TECHNIQUE: After the administration of intravenous contrast, a CT scan of the chest was performed. Images were recorded and evaluated at appropriate window settings. Reformats: axial MIP of the chest, coronal and sagittal. For radiation dose reduction, the following was used: automated exposure control, adjustme nt of mA and/or kV according to patient size. COMPARISON: None. FINDINGS: Image quality: Diagnostic. Chest wall and lower neck: Thyroid gland is enlarged. No supraclavicular or axillary lymphadenopathy. No gross breast nodules. Lungs and pleura: Small right pleural effusion is seen. Mild dependent atelectasis in posterior aspec t of bilateral lung read are seen. Small infiltrate versus atelectasis are noted in posterior aspec t of bilateral lower lobes more prominent on the right side. Scattered groundglass opacities througho ut bilateral lung read are seen. No pneumothorax. Central and peripheral airway is patent. ET tube tip is above the natalio. A few bulla are noted in bilateral upper lobes. Mediastinum: Heart size is normal. Moderate pericardial effusion is seen measures up to 1.7 cm in thi ckness adjacent to the left ventricle series 2 image 75.. No large vessel abnormality. No mediastinal adenopathy by size criteria. Bones: No aggressive osseous abnormality. No displaced rib fracture. Upper Abdomen: Please correlate with CT of abdomen and pelvis findings.. IMPRESSION: 1. Moderate size pericardial effusion measures up to 1.7 cm adjacent to the left ventricle. Heart siz e is normal. No mediastinal hematoma or lymphadenopathy. No thoracic aortic aneurysm or gross dissect ion. 2. Small right pleural effusion. Suggestion of bilateral lower lobe infiltrate worse on the right froylan e. Scattered groundglass opacities in posterior lateral periphery of bilateral aerated lung read co ncerning for additional patchy areas of infiltrates versus pneumonitis. No pneumothorax. ET tube is i n satisfactory position. 3. Diffusely enlarged thyroid gland and may represent nodular goiter suggest clinical correlation. Reviewed by: Ronnie Teran MD on 09/02/2023 10:23 PM PDT Approved by: Ronnie Teran MD on 09/02/2023 10:23 PM PDT Station ID: [email or web address]
--- NOTE | 2023-09-02 22:27 | CT Report ---
PROCEDURE: Abdomen/Pelvis W INDICATIONS: hypothermia, ams, poss sepsis iv only CONTRAST: 100 ML OMNI 300 TECHNIQUE: After the administration of intravenous contrast, a CT scan of the abdomen and pelvis was performed. Images were recorded and evaluated at appropriate window settings. Reformats: coronal and sagittal. F or radiation dose reduction, the following was used: automated exposure control, adjustment of mA and /or kV according to patient size. COMPARISON: None. FINDINGS: Image quality: Diagnostic. Lower chest: Please correlate with CT of chest findings. Liver: No solid mass. Gallbladder: Cholelithiasis without wall thickening. Biliary tree: No intrahepatic or extrahepatic dilation, accounting for age. Spleen: No splenomegaly. Pancreas: No pancreatic ductal dilation. Adrenals: No adrenal nodule. Kidneys and ureters: No hydronephrosis. No renal cystic lesion which requires follow up. No solid mas s. Stomach, bowel and peritoneum: No gastric or small bowel dilation. No abnormal wall thickening. No pa thologic free fluid. NG tube tip is in the stomach lumen. Lymph nodes: No central or retroperitoneal adenopathy. Vessels: No infrarenal aortic aneurysm. Patent portal vein. PELVIS Reproductive organs: Unremarkable. Bladder: Fulton catheter is seen in urinary bladder. Questionable diffuse bladder wall thickening, no gross bladder wall mass.. Pelvic lymph nodes: No pelvic adenopathy by size criteria. Bones: No aggressive osseous abnormality. Other: No significant ventral or inguinal hernia. IMPRESSION: 1. No bowel obstruction or abnormal bowel wall thickening. NG tube tip is in the stomach lumen. No ab scess collection. No free fluid of free air. 2. Cholelithiasis without CT evidence of acute cholecystitis. 3. Diffuse bladder wall thickening. Fulton catheter within the bladder lumen. No definite bladder wall mass is seen. No obstructing renal stones or hydronephrosis. Finding could represent cystitis sugges t clinical correlation. Reviewed by: Ronnie Mendez MD on 09/02/2023 10:25 PM PDT Approved by: Ronnie Mendez MD on 09/02/2023 10:25 PM PDT Station ID: [id number]
[2023-09-02 22:29] LABS: CLARITY,URINE HAZY (CLEAR); HCG UR QUAL NEGATIVE
[2023-09-02 22:34] VITALS: BP 88/66; O2SAT 90
[2023-09-02 22:35] LABS: BACTERIA,URINE Many /HPF (None Seen); SQUAMOUS EPITHELIAL CELL,UR MANY Squamous (<= Few)
[2023-09-02 22:36] LABS: CASTS, URINE 3-5 Fine Granular /LPF
[2023-09-02 22:37] LABS: THC CANNABINOID SCREEN, URINE NEGATIVE (NEGATIVE)
[2023-09-02 22:38] LABS: AMPHETAMINE SCREEN,URINE POSITIVE (NEGATIVE); BARBITURATE SCREEN,UR NEGATIVE (NEGATIVE); BENZODIAZEPINES SCREEN, URINE NEGATIVE (NEGATIVE); BUPRENORPHINE SCREEN, URINE NEGATIVE (NEGATIVE); COCAINE SCREEN URINE NEGATIVE (NEGATIVE); METHADONE SCREEN, URINE NEGATIVE (NEGATIVE); METHAMPHETAMINES SCREEN, URINE POSITIVE (NEGATIVE); OPIATE SCREEN, URINE NEGATIVE (NEGATIVE); OXYCODONE SCREEN, URINE NEGATIVE (NEGATIVE); TRICYCLIC ANTIDEPRESSANT,URINE NEGATIVE (NEGATIVE)
[2023-09-02] MEDS: iohexoL-300 100 ML VIAL IVP ONE (23:13)
[2023-09-02 23:22] LABS: ABG PCO2 41 mmHg (34-45); ABG PH 7.33 (7.35-7.45); ABG PO2 109 mmHg (80-100)
[2023-09-02 23:23] LABS: ABG BASE EXCESS -4.5 mmol/L (-2.0-3.0); ABG HCO3 21.1 mmol/L (22.0-26.0); ABG MODE OF VENTILATION ASSIST/CONTROL; ABG OXYGEN SATURATION 97 % (94-98); ABG TCO2 22.3 MMOL/L (21.0-29.0)
== END 2023-09-02 23:38 | disposition short-term general hospital (02) ==
LOC: EDUNIT# → ED 19:44
DX: R40.20 Unspecified coma (principal); R40.2432 Glasgow coma scale score 3-8, at arrival to emergency department; R57.9 Shock, unspecified; T68.XXXA Hypothermia, initial encounter; X31.XXXA Exposure to excessive natural cold, initial encounter; M62.82 Rhabdomyolysis; F17.200 Nicotine dependence, unspecified, uncomplicated; Z59.02 Unsheltered homelessness
CPT/HCPCS: 31500; 36415; 36556; 36620; 51702; 70450; 71260; 72125; 74177; 80053; 80143; 80179; 80306; 81001; 81025; 82077; 82550; 82803; 83605; 83735; 84100; 84443; 85025; 85610; 87040; 87077; 87086; 87181; 87633; 94002; 96365; 96366; 96368; 96375; 96376; 99291; 99292; J3370; Q9967; 81003